=== PATIENT | female | born 1995 ===

== ENCOUNTER 2023-07-06 08:29 | Inpatient (IN) | payer MEDICAID, OTHER ==
[~2023-07-06] VITALS: Ht 154.9 cm; Wt 56.8 kg
[2023-07-06 09:08] LABS: BASOPHILS % (AUTO) 0.3 % (0.0-2.0); EOSINOPHILS % (AUTO) 1.3 % (1.0-6.0); HEMATOCRIT 45.8 % (36-46); HEMOGLOBIN 15.7 g/dL (12.0-16.0); LYMPHOCYTES # (AUTO) 1.1 K/uL (1.0-4.8); LYMPHOCYTES % (AUTO) 14.2 % (22.0-44.0); MEAN CORPUSCULAR HEMOGLOBIN 31.4 pg (26.0-34.0); MEAN CORPUSCULAR HGB CONC 34.3 G/dL (31.0-37.0); MEAN CORPUSCULAR VOLUME 91 fL (80-100); MONOCYTES # (AUTO) 0.3 K/uL (0.1-1.0); MONOCYTES % (AUTO) 3.8 % (2.0-9.0); NEUTROPHILS # (AUTO) 6.4 K/uL (1.8-7.7); NEUTROPHILS % (AUTO) 80.4 % (40.0-70.0); PLATELET COUNT (AUTO) 230 K/uL (150-450); RED BLOOD CELL COUNT(AUTO) 5.01 MIL/uL (4.00-5.20); RED CELL DISTRIBUTION WIDTH 14.3 % (11.5-14.5)
[2023-07-06 09:22] LABS: ANION GAP 15 mmol/L (8-16); CALCIUM, TOTAL 9.4 mg/dL (8.8-10.5); CARBON DIOXIDE 24 mmol/L (22-29); CHLORIDE 103 mmol/L (98-107); CREATININE 0.82 mg/dL (0.60-1.30); GLOMERULAR FILTR. RATE CALC > 60 mL/min (>60); GLUCOSE,RANDOM 102 mg/dL (70-110); SODIUM SERUM 142 mmol/L (136-145); UREA NITROGEN, BLOOD 10 mg/dL (7-18)
[2023-07-06 09:26] LABS: ALCOHOL, BLOOD (SERUM) < 3 mg/dL (0-10); POTASSIUM 2.5 mmol/L (3.5-5.1)
[2023-07-06 09:28] LABS: ALANINE AMINOTRANSFERASE 16 U/L (12-78); ALBUMIN 4.3 g/dL (3.4-5.0); ALKALINE PHOSPHATASE 53 U/L (46-116); ASPARTATE AMINOTRANSFERASE 13 U/L (15-37); BILIRUBIN,TOTAL 0.6 mg/dL (0.1-1.0)
[2023-07-06 09:57] LABS: COVID AG,FIA SOURCE NASAL SWAB
[2023-07-06 10:18] LABS: SARS-COV2 (COVID) ANTIGEN,FIA Negative (Negative)
[2023-07-06 10:54] LABS: APPEARANCE,URINE CLEAR (CLEAR); BILIRUBIN,URINE NEGATIVE (NEGATIVE); COLOR,URINE LIGHT YELLOW (YELLOW); GLUCOSE, URINE (UA) NEGATIVE (NEGATIVE); KETONES,URINE NEGATIVE (NEGATIVE); LEUKOCYTE ESTERASE ,URINE NEGATIVE (NEGATIVE); NITRATE,URINE NEGATIVE (NEGATIVE); OCCULT BLOOD,URINE NEGATIVE (NEGATIVE); PH,URINE 7.5 (5.0-8.0); PH,URINE DRUG SCREEN 7.5 (5.0-8.0); PROTEIN,URINE NEGATIVE (NEGATIVE); SPECIFIC GRAVITIY, URINE 1.009 (1.003-1.030); UROBILINOGEN,URINE <=1.0 mg/dL (<=1.0)
[2023-07-06 10:59] LABS: ALCOHOL, URINE DRUG SCREEN NEGATIVE (NEGATIVE); AMPHET/METH SCREEN,URINE NEGATIVE (NEGATIVE); BARBITURATE SCREEN, URINE NEGATIVE (NEGATIVE); BENZODIAZEPINES SCREEN,URINE NEGATIVE (NEGATIVE); CANNABINOID SCREEN,URINE NEGATIVE (NEGATIVE); COCAINE SCREEN,URINE NEGATIVE (NEGATIVE); METHADONE SCREEN, URINE NEGATIVE (NEGATIVE); OPIATE SCREEN,URINE NEGATIVE (NEGATIVE); PHENCYCLIDINE SCREEN,URINE NEGATIVE (NEGATIVE)
[2023-07-06 11:07] LABS: BACTERIA,URINE None Seen /HPF (None Seen); RBC,URINE None Seen /HPF (0-2); SQUAMOUS EPITHELIAL CELL,UR Few /LPF (None Seen); WBC,URINE None Seen /HPF (0-5)
[2023-07-06] MEDS: POTASSIUM CHLORIDE 10% 40 MEQ/30 ML LIQUID UDCUP PO ONE (11:08)
[2023-07-06] MEDS: POTASSIUM CHLORIDE 20 MEQ ER TABLET PO ONE ×2 (11:08→19:11)
[2023-07-06 17:53] VITALS: BP 131/86; PULSE 77; RESP 18; TEMP 98.8
[2023-07-06] MEDS ORDERED: HALOPERIDOL 5 MG TABLET PO PRN (18:15)
[2023-07-06] MEDS ORDERED: ZOLPIDEM TARTRATE 10 MG TABLET PO PRN (18:15)
[2023-07-06] MEDS ORDERED: LORazepam 2 MG TABLET PO PRN (18:15)
[2023-07-06 18:53] VITALS: BP 131/86; PULSE 79; RESP 18; TEMP 97.6; O2SAT 100
[2023-07-06] MEDS ORDERED: INFLUENZA VIRUS VACCINE QVS 2023-24 (6MO+)/PF 60 MCG/0.5 ML SYRINGE IM. ONE (19:30)
[2023-07-06 20:19] VITALS: BP 130/75; PULSE 88; RESP 18; TEMP 97
[2023-07-07 07:54] LABS: ANION GAP 14 mmol/L (8-16); CALCIUM, TOTAL 9.3 mg/dL (8.8-10.5); CARBON DIOXIDE 21 mmol/L (22-29); CHLORIDE 108 mmol/L (98-107); CREATININE 0.79 mg/dL (0.60-1.30); GLOMERULAR FILTR. RATE CALC > 60 mL/min (>60); GLUCOSE,RANDOM 81 mg/dL (70-110); POTASSIUM 3.3 mmol/L (3.5-5.1); SODIUM SERUM 143 mmol/L (136-145); UREA NITROGEN, BLOOD 10 mg/dL (7-18)
[2023-07-07 09:32] VITALS: BP 126/70; PULSE 70; RESP 18; TEMP 98
[2023-07-07] MEDS: GABAPENTIN 100 MG CAPSULE PO SCH (12:39)
[2023-07-07] MEDS: POTASSIUM CHLORIDE 20 MEQ ER TABLET PO ONE (13:43)
[2023-07-07 23:36] VITALS: RESP 18
[2023-07-08 09:26] LABS: ANION GAP 10 mmol/L (8-16); CALCIUM, TOTAL 9.3 mg/dL (8.8-10.5); CARBON DIOXIDE 23 mmol/L (22-29); CHLORIDE 107 mmol/L (98-107); CREATININE 0.78 mg/dL (0.60-1.30); GLOMERULAR FILTR. RATE CALC > 60 mL/min (>60); GLUCOSE,RANDOM 71 mg/dL (70-110); POTASSIUM 3.2 mmol/L (3.5-5.1); SODIUM SERUM 140 mmol/L (136-145); UREA NITROGEN, BLOOD 11 mg/dL (7-18)
[2023-07-08 09:39] VITALS: BP 108/67; PULSE 74; RESP 18; TEMP 97.4
[2023-07-08] MEDS: POTASSIUM CHLORIDE 20 MEQ ER TABLET PO SCH (13:59)
[2023-07-08] MEDS: SPIRONOLACTONE 25 MG TABLET PO SCH (14:00)
[2023-07-08] MEDS: RisperiDONE 0.5 MG TABLET PO SCH (21:00)
[2023-07-08 21:59] VITALS: BP 109/64; PULSE 77; RESP 18; TEMP 98.1
[2023-07-09 09:00] VITALS: BP 106/60; PULSE 74; RESP 18; TEMP 97.7
[2023-07-09 18:12] LABS: ANION GAP 12 mmol/L (8-16); CALCIUM, TOTAL 9.1 mg/dL (8.8-10.5); CARBON DIOXIDE 22 mmol/L (22-29); CHLORIDE 105 mmol/L (98-107); GLOMERULAR FILTR. RATE CALC > 60 mL/min (>60); GLUCOSE,RANDOM 71 mg/dL (70-110); POTASSIUM 3.1 mmol/L (3.5-5.1); SODIUM SERUM 139 mmol/L (136-145); UREA NITROGEN, BLOOD 19 mg/dL (7-18)
[2023-07-09 21:56] VITALS: BP 106/67; PULSE 70; RESP 18; TEMP 96.9
[2023-07-10 09:47] LABS: ANION GAP 14 mmol/L (8-16); CARBON DIOXIDE 19 mmol/L (22-29); CHLORIDE 107 mmol/L (98-107); CREATININE 0.81 mg/dL (0.60-1.30); GLOMERULAR FILTR. RATE CALC > 60 mL/min (>60); GLUCOSE,RANDOM 106 mg/dL (70-110); POTASSIUM 3.5 mmol/L (3.5-5.1); SODIUM SERUM 140 mmol/L (136-145); UREA NITROGEN, BLOOD 15 mg/dL (7-18)
[2023-07-10 10:27] VITALS: BP 108/69; PULSE 92; RESP 18; TEMP 98.5
[2023-07-10 20:59] VITALS: BP 119/63; PULSE 85; RESP 18; TEMP 97.9
[2023-07-11 10:10] VITALS: BP 99/69; PULSE 79; RESP 18; TEMP 97.8
[2023-07-11 21:10] VITALS: BP 108/63; PULSE 85; RESP 18; TEMP 97.8
[2023-07-12 11:08] VITALS: BP 109/67; PULSE 78; RESP 18; TEMP 97.6
[2023-07-12 20:45] VITALS: BP 108/71; PULSE 76; RESP 18; TEMP 97.9
[2023-07-12] MEDS: RisperiDONE 0.5 MG TABLET PO SCH (20:53)
[2023-07-13 08:00] VITALS: BP 107/68; PULSE 77; RESP 16; TEMP 97.1
[2023-07-13] MEDS: POTASSIUM CHLORIDE 20 MEQ ER TABLET PO STA (09:17)
[2023-07-13] MEDS ORDERED: POTA-364 PO (13:12)
== END 2023-07-13 18:15 | disposition home or self-care (01) | DRG 750 ==
LOC: EMS 08:36 → 3EC 13:59 → 3EI 07-07 16:27
PROVIDERS: ADMIT Psychiatry & Neurology Psychiatry; ATTEND Psychiatry & Neurology Psychiatry
PROC: GZHZZZZ Group Psychotherapy (ICD-10-PCS; principal; 2023-07-07)
PROC: GZ56ZZZ Individual Psychotherapy, Supportive (ICD-10-PCS; 2023-07-07)
DX: F20.0 Paranoid schizophrenia (principal); E27.40 Unspecified adrenocortical insufficiency; F43.10 Post-traumatic stress disorder, unspecified; E87.6 Hypokalemia; Z20.822 Contact with and (suspected) exposure to COVID-19; K21.9 Gastro-esophageal reflux disease without esophagitis; D64.9 Anemia, unspecified; F32.9 Major depressive disorder, single episode, unspecified; Z88.8 Allergy status to other drugs, medicaments and biological substances
CPT/HCPCS: 80048; 80053; 80307; 81001; 84132; 84703; 85025; 99285; G0480